=== PATIENT | male | born 1995 | race Caucasian/White ===

== ENCOUNTER 2018-09-08 15:39 | Emergency (ER) | payer OTHER ==
[2018-09-08 16:01] VITALS: RESP 18; TEMP 98.3
[2018-09-08] MEDS ORDERED: MORPHINE SULFATE 4 MG/ML SYRINGE IVP STA (17:05)
[2018-09-08] MEDS ORDERED: KETOROLAC 30 MG/ML 1 ML VIAL IVP STA (17:05)
[2018-09-08] MEDS ORDERED: SODIUM CHLORIDE 0.9% 1,000 ML IV STA (17:05)
[2018-09-08] MEDS ORDERED: ONDANSETRON 4 MG/2 ML VIAL IVP STA (17:05)
[2018-09-08 17:48] LABS: Basophils % (A) 0 %; Eosinophils % (A) 0 %; HCT 43.8 % (39.0-53.0); Lymphocytes % (A) 8 %; MCH 29.4 pg (25.0-35.0); MCHC 34.2 g/dL (31.0-37.0); Monocytes # (A) 0.4 k/uL (0-1.0); Monocytes % (A) 3 %; Neutrophils # (A) 10.5 k/uL (1.3-7.7); Neutrophils % (A) 88 %; Platelet Count 275 k/uL (150-450); WBC 11.9 k/uL (3.8-10.6)
[2018-09-08 17:57] LABS: ALT 44 U/L (21-72); AST 28 U/L (17-59); Albumin 4.3 g/dL (3.5-5.0); Alkaline Phosphatase 62 U/L (38-126); Amylase 41 U/L (30-110); Anion Gap 6 mmol/L; Blood Urea Nitrogen 14 mg/dL (9-20); Calcium 9.6 mg/dL (8.4-10.2); Carbon Dioxide 28 mmol/L (22-30); Chloride 107 mmol/L (98-107); Glucose 118 mg/dL (74-99); Lipase 46 U/L (23-300); Potassium 4.2 mmol/L (3.5-5.1); Sodium 141 mmol/L (137-145); Total Bilirubin 0.6 mg/dL (0.2-1.3); Total Protein 7.2 g/dL (6.3-8.2)
--- NOTE | 2018-09-08 18:17 | CT ---
EXAMINATION TYPE: CT abdomen pelvis wo con DATE OF EXAM: 09/08/2018 COMPARISON: 08/10/2006 HISTORY: Right side flank pain. CT DLP: 445.3 mGycm Automated exposure control for dose reduction was used. TECHNIQUE: Helical acquisition of images was performed from the lung bases through the pelvis. FINDINGS: Lung bases are clear. There is no pleural effusion. There is no pericardial effusion. Heart size is n ormal. Liver spleen pancreas gallbladder appear normal. Bile ducts are not dilated. There is no adrenal mass. Right kidney shows hydronephrosis. There is a 1 mm calculus in the right ki dney. There is a 2 mm calcification in the urinary bladder on the right side of midline and could be a stone in the bladder or distal right ureter. There is mild right-sided hydroureter. There is no ret roperitoneal adenopathy. Left kidney shows no hydronephrosis. There is no inguinal hernia. There is no free fluid in the pelvis. There is no sign of ascites. There is no sign of free air. Appendix appears normal. The lumbar vertebra have normal spacing and alignme nt. Posterior elements are intact. Bony pelvis is intact. IMPRESSION: SMALL RIGHT RENAL CALCULUS. SMALL CALCULUS IN THE DISTAL RIGHT URETER OR WITHIN THE BLADDER. MILD RIG HT-SIDED OBSTRUCTION.
--- NOTE | 2018-09-08 18:26 | XR ---
EXAMINATION TYPE: XR KUB DATE OF EXAM: 09/08/2018 COMPARISON: NONE HISTORY: Right lower quadrant pain TECHNIQUE: 2 views FINDINGS: 2 upright views show no sign of intestinal obstruction or pneumoperitoneum. Fecal pattern i s normal. There is slight levoscoliosis. There is mild dextroscoliosis of the thoracic spine. There a re no pathologic calcifications over the kidneys. IMPRESSION: Nonacute abdomen.
[2018-09-08 18:34] VITALS: BP 138/63; PULSE 83
--- NOTE | 2018-09-08 19:07 | ED ---
General Adult HPI - General Chief complaint: Back Pain/Injury Stated complaint: Lower back pain, right side Time Seen by Provider: 09/08/18 17:05 Source: patient, RN notes reviewed Mode of arrival: ambulatory Limitations: no limitations - History of Present Illness Initial comments: 23-year-old male presents to the emergency department for a chief complaint of right-sided flank pain. Patient states this has been ongoing for the past few days but worsened today. He states is a sharp pain kind of radiating around his right side. Patient admits to nausea and vomiting. States he has vomited twice in the past day. Patient does admit to history of kidney stones when he was 10 years old. Patient has not had a problem with this since. Patient has no other complaints at this time including shortness of breath, chest pain, abdominal pain, headache, or visual changes. - Related Data Previous Rx's Medication Instructions Recorded Ibuprofen [Motrin] 600 mg PO Q6HR PRN #20 tab 11/13/15 Orphenadrine [Norflex] 100 mg PO Q12H #10 tablet.er 11/13/15 HYDROcodone/APAP 5-325MG [[place] 1 tab PO Q6HR PRN #10 tab 09/08/18 5-325] Ibuprofen [Motrin] 600 mg PO Q8HR PRN #20 tab 09/08/18 Ondansetron [Zofran ODT] 4 mg PO Q8HR PRN #15 tab 09/08/18 Tamsulosin [Flomax] 0.4 mg PO DAILY #10 cap 09/08/18 Allergies Allergy/AdvReac Type Severity Reaction Status Date / Time iodine Allergy Unknown Verified 09/08/18 16:01 Review of Systems ROS Statement: Those systems with pertinent positive or pertinent negative responses have been documented in the HPI. ROS Other: All systems not noted in ROS Statement are negative. Past Medical History Past Medical History: No Reported History Additional Past Medical History / Comment(s): kidney stones. History of Any Multi-Drug Resistant Organisms: None Reported Past Surgical History: No Surgical Hx Reported Past Psychological History: No Psychological Hx Reported Smoking Status: Current every day smoker Past Alcohol Use History: Occasional Past Drug Use History: Marijuana General Exam Limitations: no limitations General appearance: alert, in no apparent distress Head exam: Present: atraumatic, normocephalic, normal inspection Eye exam: Present: normal appearance, PERRL, EOMI. Absent: scleral icterus, conjunctival injection, periorbital swelling ENT exam: Present: normal exam, mucous membranes moist Neck exam: Present: normal inspection, full ROM. Absent: tenderness, meningismus, lymphadenopathy Respiratory exam: Present: normal lung sounds bilaterally. Absent: respiratory distress, wheezes, rales, rhonchi, stridor Cardiovascular Exam: Present: regular rate, normal rhythm, normal heart sounds. Absent: systolic murmur, diastolic murmur, rubs, gallop, clicks GI/Abdominal exam: Present: soft, normal bowel sounds. Absent: distended, tenderness, guarding, rebound, rigid Back exam: Absent: CVA tenderness (R), CVA tenderness (L) Neurological exam: Present: alert, oriented X3, CN II-XII intact Psychiatric exam: Present: normal affect, normal mood Course Vital Signs 09/08/18 09/08/18 15:58 18:33 Temperature 98.3 F Pulse Rate 76 83 Respiratory 18 18 Rate Blood Pressure 137/85 138/63 O2 Sat by Pulse 97 100 Oximetry Medical Decision Making - Medical Decision Making 23-year-old male presents to the emergency department for a chief complaint of right flank pain. This has been ongoing for the past few days, worsening today. Patient does have a history of kidney stones. On exam no significant CVA tenderness. Patient given Toradol morphine and Zofran. Vitals with any sensible limits. CBC and CMP unremarkable. White blood cell count 11.9, likely reactive. Urine does not show any evidence of infection. CT does show a small 1 mm right renal calculus in the distal right ureter or within the bladder. There is mild right sided obstruction with mild right-sided hydroureter. Patient reevaluated, much more comfortable at this time. Patient will be given home pain medications and anti-emetics. He will follow up with urologist and return if he has any worsening symptoms. - Lab Data Result diagrams: 09/08/18 16:30 09/08/18 16:30 Lab Results 09/08/18 09/08/18 09/08/18 Range/Units 16:30 16:30 18:51 WBC 11.9 H (3.8-10.6) k/uL RBC 5.10 (4.30-5.90) m/uL Hgb 15.0 (13.0-17.5) gm/dL Hct 43.8 (39.0-53.0) % MCV 86.0 (80.0-100.0) fL MCH 29.4 (25.0-35.0) pg MCHC 34.2 (31.0-37.0) g/dL RDW 13.0 (11.5-15.5) % Plt Count 275 (150-450) k/uL Neutrophils % 88 % Lymphocytes % 8 % Monocytes % 3 % Eosinophils % 0 % Basophils % 0 % Neutrophils # 10.5 H (1.3-7.7) k/uL Lymphocytes # 1.0 (1.0-4.8) k/uL Monocytes # 0.4 (0-1.0) k/uL Eosinophils # 0.0 (0-0.7) k/uL Basophils # 0.0 (0-0.2) k/uL Sodium 141 (137-145) mmol/L Potassium 4.2 (3.5-5.1) mmol/L Chloride 107 (98-107) mmol/L Carbon Dioxide 28 (22-30) mmol/L Anion Gap 6 mmol/L BUN 14 (9-20) mg/dL Creatinine 0.97 (0.66-1.25) mg/dL Est GFR (CKD-EPI)AfAm >90 (>60 ml/min/1.73 sqM) Est GFR (CKD-EPI)NonAf >90 (>60 ml/min/1.73 sqM) Glucose 118 H (74-99) mg/dL Calcium 9.6 (8.4-10.2) mg/dL Total Bilirubin 0.6 (0.2-1.3) mg/dL AST 28 (17-59) U/L ALT 44 (21-72) U/L Alkaline Phosphatase 62 (38-126) U/L Total Protein 7.2 (6.3-8.2) g/dL Albumin 4.3 (3.5-5.0) g/dL Amylase 41 (30-110) U/L Lipase 46 (23-300) U/L Urine Color Yellow Urine Appearance Clear (Clear) Urine pH 7.0 (5.0-8.0) Ur Specific [place] 1.020 (1.001-1.035) Urine Protein Trace H (Negative) Urine Glucose (UA) Negative (Negative) Urine Ketones Negative (Negative) Urine Blood Negative (Negative) Urine Nitrite Negative (Negative) Urine Bilirubin Negative (Negative) Urine Urobilinogen <2.0 (<2.0) mg/dL Ur Leukocyte Esterase Negative (Negative) Disposition Clinical Impression: Kidney stone Disposition: HOME SELF-CARE Condition: Good Instructions: Kidney Stones (ED) Additional Instructions: Take medications as directed. Please follow up with urologist in one to 2 days. Please return to the emergency department if you have any worsening symptoms. Prescriptions: HYDROcodone/APAP 5-325MG [[place] 5-325] 1 tab PO Q6HR PRN #10 tab PRN Reason: Pain Ibuprofen [Motrin] 600 mg PO Q8HR PRN #20 tab PRN Reason: Pain Ondansetron [Zofran ODT] 4 mg PO Q8HR PRN #15 tab PRN Reason: Nausea Tamsulosin [Flomax] 0.4 mg PO DAILY #10 cap Is patient prescribed a controlled substance at d/c from ED?: No Referrals: Sebastian Wade MD [Primary Care Provider] - 1-2 days Jacky Rojo MD [STAFF PHYSICIAN] - 1-2 days Time of Disposition: 19:05
[2018-09-08 19:12] LABS: Appearance,Urine Clear (Clear); Bilirubin,Urine Negative (Negative); Blood,Urine Negative (Negative); Color,Urine Yellow; Glucose,Urine (UA) Negative (Negative); Ketones,Urine Negative (Negative); Leukocyte Esterase,Urine Negative (Negative); Nitrite,Urine Negative (Negative); Protein,Urine Trace (Negative); Urobilinogen,Urine <2.0 mg/dL (<2.0)
== END 2018-09-08 19:20 | disposition home or self-care (01) ==
LOC: EC 15:39
DX: N20.0 Calculus of kidney (principal); N13.4 Hydroureter; F17.200 Nicotine dependence, unspecified, uncomplicated; Z91.048 Other nonmedicinal substance allergy status
CPT/HCPCS: 36415; 80053; 82150; 83690; 85025; 81003; 74018; 74176; 99284; 96374; 96375 ×2; 96361; J2270; J2405; J1885